=== PATIENT | male | born 1960 | race Caucasian/White ===

== ENCOUNTER 2016-10-28 12:10 | Emergency (ER) | payer SELFPAY ==
[2016-10-28 12:48] LABS: APPEARANCE CLEAR (CLEAR); BILIRUBIN NEGATIVE (NEGATIVE); COLOR DK YELLOW (YELLOW); GLUCOSE NEGATIVE (NEGATIVE); KETONE NEGATIVE (NEGATIVE); LEUKOCYTE ESTERASE NEGATIVE (NEGATIVE); NITRITE NEGATIVE (NEGATIVE); PROTEIN NEGATIVE (NEGATIVE); SPECIFIC GRAVITY 1.015 (1.005-1.020)
== END 2016-10-28 15:06 | disposition home or self-care (01) ==
LOC: D.ER 12:10
PROVIDERS: Emergency Medicine
DX: M54.5 Low back pain (principal); S39.012A Strain of muscle, fascia and tendon of lower back, initial encounter; X58.XXXA Exposure to other specified factors, initial encounter; Y93.89 Activity, other specified; Y92.89 Other specified places as the place of occurrence of the external cause; M62.838 Other muscle spasm; M79.1 Myalgia

== ENCOUNTER 2017-04-28 08:02 | Emergency (ER) | payer MEDICAID | END 2017-04-28 09:21 | disposition home or self-care (01) | LOC: D.ER 08:02 | DX: M25.532 Pain in left wrist (principal); M25.531 Pain in right wrist; M79.602 Pain in left arm; M79.601 Pain in right arm ==

== ENCOUNTER → 2017-05-14 13:07 | Outpatient (CLI) | payer MEDICAID | END | disposition home or self-care (01) | LOC: D.MRI 13:00 | DX: R22.30 Localized swelling, mass and lump, unspecified upper limb (principal); M25.531 Pain in right wrist ==

== ENCOUNTER 2019-10-12 05:51 | Day surgery (SDC) | payer MEDICAID ==
[2019-10-10 11:26] LABS: HEMATOCRIT 43.1 % (42.0-54.0); HEMOGLOBIN 14.8 g/dL (13.5-17.5); LYMPHOCYTES 34.6 % (15-50); MCHC 34.3 g/dL (31.0-37.0); MCV 84.3 fL (80.0-100.0); MEAN PLATELET VOLUME 8.1 fL (7.4-10.4); NEUTROPHILS 49.2 % (40-80); PLATELET COUNT 339 10x3/uL (130-400); RBC 5.11 10x6/uL (4.20-6.10); RDW 12.5 % (11.5-14.5)
[2019-10-10 11:45] LABS: APTT 29.6 SECONDS (22.8-39.4); INR 0.94 (0.85-1.17); PROTIME 12.5 SECONDS (11.6-15.0)
[2019-10-10 11:49] LABS: ALBUMIN 3.6 g/dL (3.4-5.0); ANION GAP 8.1 mmol/L (8-16); BILIRUBIN - TOTAL 0.45 mg/dL (0.2-1.3); CALCIUM 8.3 mg/dL (8.5-10.1); CREATININE - SERUM 1.1 mg/dL (0.6-1.3); POTASSIUM - SERUM 4.1 mmol/L (3.5-5.1)
--- NOTE | 2019-10-10 12:21 | NUR ---
PITT NOTE: T97.9 [id number]% P56 R 20 BP139/83
[~2019-10-12] VITALS: Ht 165.1 cm; Wt 82.6 kg
[2019-10-12 06:40] VITALS: BP 132/87; Ht 165.1 cm; Wt 82.6 kg
--- NOTE | 2019-10-12 09:18 | NUR ---
0905 RETURNED TO [id number] AT SIDE, CRITERIA FOR RELEASE GIVEN.
--- NOTE | 2019-10-12 11:28 | OP ---
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 PROCEDURE: Cheilectomy with bone fragment removal, left first metatarsophalangeal joint. ANESTHESIA: General with local infiltrate utilizing 20 cc of lidocaine and Marcaine plain around the first ray of the left foot. HEMOSTASIS: Left ankle tourniquet at 250 mmHg. PREOPERATIVE DETAILS: The patient was taken to the OR and placed on the operating table in a supine position. This was followed by induction of general anesthesia and infiltration of local anesthetic. The left extremity was then prepped and draped in usual aseptic technique followed by exsanguination and inflation of tourniquet. A 15 blade was used to create a 4-cm linear incision over the dorsal aspect of the first MPJ. Incision was deepened down through subcutaneous tissue and a linear capsulotomy was performed and the head of the first metatarsal and base of proximal phalanx were delivered. A sagittal saw was used to resect the eminence and the dorsal aspect of the first metatarsal. Prior to that, there was a large bone fragment measuring approximately 1.5 cm in length and 0.75 cm in height and 0.5 cm in depth, was removed. Following removal of bone with a sagittal saw. There was a rongeur introduced and removed bone from the dorsal proximal aspect of the proximal phalanx of the hallux. A rasp was used to smooth all areas. There was noted to be significant cartilaginous destruction of the first metatarsal head with erosions and cartilaginous thinning. The wound was flushed better range of motion was noted as well as reduction of enlargement of the dorsal aspect of the joint. The capsule was repaired with 2-0 Vicryl, the subcutaneous tissue with 4-0 Rapide and the skin was closed with 4-0 Rapide in a subcuticular technique followed by Dermabond. Adaptic, 4 x 4 and Conform were used to dress the wound followed by Jesus wrap. Tourniquet was deflated. POSTOPERATIVE DETAILS: The patient tolerated the procedure well and left the OR with vital signs stable and vascular status at preoperative levels. The patient was transported to recovery per anesthesia in stable condition . TRANSINT:[id number] Voice Confirmation ID: [id number] DOCUMENT ID: [id number] OPERATIVE REPORT [id number] MCKINLEY PRINCE JR, MCKAY DPM at 1128 CC: [id number] DICTATION DATE: 10/12/19 0848 TRANSITIONAL LIVING SPECIALIST: 10/12/19 112[address] [facility] 10/12/19 [id number] [place] [address]
== END 2019-10-12 10:15 | disposition home or self-care (01) ==
LOC: D.OPS 05:51
PROVIDERS: Anesthesiology; ATTEND Podiatrist
DX: M19.072 Primary osteoarthritis, left ankle and foot (principal)